=== PATIENT | female | born 1955 | race Caucasian/White ===

== ENCOUNTER → 2019-01-09 | Outpatient (CLI) | payer OTHER ==
[2019-01-09 11:25] LABS: Urine WBC None Seen /hpf (0 - 5)
[2019-01-09 11:56] LABS: Basophils # (auto) 0 uL; Basophils % (auto) 0.7 % (0.0-2.0); Eosinophils # (auto) 0.1 uL; Eosinophils % (auto) 2.6 % (0.0-7.0); Hematocrit 41.4 % (36.0-46.0); Hemoglobin 14.4 g/dL (12.2-16.2); Lymphocytes # (auto) 1.3 uL; Lymphocytes % (auto) 38.5 % (10.0-50.0); Mean Corpuscular Hemoglobin 31.2 pg (28.0-32.0); Mean Corpuscular Hgb Conc. 34.7 g/dL (32.0-36.0); Monocytes # (auto) 0.3 uL; Monocytes % (auto) 8.8 % (0.0-12.0); Neutrophils # (auto) 1.7 uL; Neutrophils % (auto) 49.4 % (37.0-80.0); Nucleated Red Blood Cells % 0.1 %; Platelet Count (auto) 181 10^3/uL (140-450); Red Blood Cells 4.61 10^6/uL (4.0-5.20); Red Cell Distribution Width 13.1 % (11.8-14.3); White Blood Cell 3.4 10^3/uL (4.4-10.8)
[2019-01-09 12:05] LABS: Albumin 3.5 g/dL (3.4-5.0); BUN/Creatinine Ratio 22.5; Calcium 8.8 mg/dL (8.5-10.1); Potassium 3.9 mmol/L (3.5-5.1)
[2019-01-09 12:08] LABS: Bilirubin, Total 0.5 mg/dL (0.2-1.0); Total Protein 6.4 g/dL (6.4-8.2)
[2019-01-09 16:53] LABS: Urine Bacteria NONE SEEN /hpf (None Seen); Urine Blood TRACE /uL (Negative); Urine Mucus FEW (None Seen); Urine Specific Gravity 1.039 (1.001-1.035)
== END | disposition home or self-care (01) ==
LOC: LAB 09:54
PROVIDERS: ATTEND Family Medicine
DX: E10.65 Type 1 diabetes mellitus with hyperglycemia (principal); I10 Essential (primary) hypertension
CPT/HCPCS: 36415; 80053; 80061; 81001; 82043; 82306; 82607; 83036; 84443; 85025

== ENCOUNTER 2019-03-02 16:37 | Inpatient (IN) | payer OTHER ==
[~2019-03-02] VITALS: Ht 165.1 cm; Wt 72.0 kg
[2019-03-02] MEDS ORDERED: ACETAMINOPHEN 325 MG TAB PO ONE (17:00)
[2019-03-02] MEDS ORDERED: SODIUM CHLORIDE 0.9% 1,000 ML IV ONE (17:12)
[2019-03-02] MEDS ORDERED: InsuLIN REG 1unit/0.01ml Soln (100units/ml) IV ONE (17:15)
[2019-03-02] MEDS ORDERED: ONDANSETRON HCL 4 MG/2 ML VIAL IV ONE (17:15)
[2019-03-02 17:20] LABS: Basophils # (auto) 0 uL; Basophils % (auto) 0.3 % (0.0-2.0); Eosinophils # (auto) 0 uL; Eosinophils % (auto) 0.2 % (0.0-7.0); Hematocrit 36.9 % (36.0-46.0); Hemoglobin 12.6 g/dL (12.2-16.2); Lymphocytes # (auto) 0.8 uL; Mean Corpuscular Hemoglobin 30.2 pg (28.0-32.0); Mean Corpuscular Hgb Conc. 34.3 g/dL (32.0-36.0); Mean Corpuscular Volume 88.1 fL (80.0-100.0); Monocytes % (auto) 7.7 % (0.0-12.0); Neutrophils # (auto) 11.2 uL; Neutrophils % (auto) 85.8 % (37.0-80.0); Platelet Count (auto) 252 10^3/uL (140-450); Red Blood Cells 4.18 10^6/uL (4.0-5.20); Red Cell Distribution Width 12.4 % (11.8-14.3)
[2019-03-02 17:34] LABS: Albumin 2.6 g/dL (3.4-5.0); Calcium 8.8 mg/dL (8.5-10.1); Potassium 3.6 mmol/L (3.5-5.1)
[2019-03-02 17:37] LABS: Bilirubin, Total 0.7 mg/dL (0.2-1.0)
[2019-03-02 17:50] LABS: BUN/Creatinine Ratio 22.5
[2019-03-02 18:08] LABS: Magnesium 2.5 mg/dL (1.6-2.6)
[2019-03-02 18:21] LABS: Partial Thromboplastin Time 28.5 sec (23.64-32.05)
[2019-03-02] MEDS ORDERED: DEXTROSE (50%) 50ML SYRG IV PRN (19:15)
[2019-03-02] MEDS ORDERED: MORPHINE SULFATE 4 MG/ML SYR/VIAL IV PRN (19:15)
[2019-03-02] MEDS ORDERED: MORPHINE SULF INJ 2 MG/ML SYRINGE 1ML IV PRN ×2 (19:15→20:00)
[2019-03-02] MEDS ORDERED: cefTRIAXone 1GM/50ML D5W 50 ML IV ONE (19:15)
[2019-03-02] MEDS: SODIUM CHLORIDE 0.9% 1,000 ML IV SCH (19:15)
[2019-03-02] MEDS ORDERED: NITROGLYCERIN 0.4 MG SL TAB SL PRN (19:15)
[2019-03-02] MEDS: InsuLIN REG 1unit/0.01ml Soln (100units/ml) SC SCH (20:15)
[2019-03-02] MEDS: ACCU-CHEK COMFORT CURVE STRIP VI SCH (20:15)
[2019-03-02 20:46] LABS: Amylase 9 U/L (25-115); Lipase 36 U/L (73-393)
[2019-03-02 20:51] LABS: Alcohol, Urine < 3.0 mg/dL (0-5); Amphetamine Screen, Urine NEGATIVE (NEGATIVE); Barbiturate Scree,Urine NEGATIVE (NEGATIVE); Benzodiazephine Screen, Urine NEGATIVE (NEGATIVE); Cannabinoid Screen, Urine NEGATIVE (NEGATIVE); Cocaine Screen, Urine NEGATIVE (NEGATIVE); Opiate Scree,Urine NEGATIVE (NEGATIVE); Phencyclidine Screen, Urine NEGATIVE (NEGATIVE)
[2019-03-02 20:53] LABS: Urine Bacteria FEW /hpf (None Seen); Urine Blood TRACE /uL (Negative); Urine Specific Gravity 1.021 (1.001-1.035); Urine WBC 43 /hpf (0 - 5); Urine WBC Clumps PRESENT /hpf (None Seen)
[2019-03-02] MEDS: metroNIDAZOLE 500MG/100ML 100 ML IV SCH (21:36)
--- NOTE | 2019-03-02 22:15 | NUR ---
Telemetry admit from ER CHELE CASTRO admitted to Telemetry unit after SBAR received. Patient oriented to LORETA SADLER RN primary RN, unit, room, bed, and unit policies regarding patient care and visiting hours. Patient now on continuous telemetry monitoring, tele box # [id number] and telemetry reading on arrival to unit is Sinus Rhythm at 95BPM. Patient placed on bedside oxygen, weighed by bedscale and encouraged to call if they need something. All questions and concerns addressed, patient verbalized understanding. Note: Patient is alert and oriented, ambulatory. No distress noted, saturating at 97% on room air. Complaints of pain to bilateral feet. Patient states she has pain patches to both feet at night prior to going to bed. Advise patient that she has pain medication if she needs it for pain. Will monitor
[2019-03-02] MEDS ORDERED: LOSA25TA38 PO (22:52)
[2019-03-02] MEDS ORDERED: INSUINJ2 SC (22:52)
[2019-03-02] MEDS ORDERED: CLON0.5T11 PO (22:52)
[2019-03-02] MEDS ORDERED: ATO40T PO (22:52)
[2019-03-02] MEDS ORDERED: GABA300C10 PO (22:52)
[2019-03-02 22:55] VITALS: BP 138/87
[2019-03-03] MEDS: InsuLIN REG 1unit/0.01ml Soln (100units/ml) SC SCH ×7 (00:31→23:38)
[2019-03-03] MEDS: MORPHINE SULF INJ 2 MG/ML SYRINGE 1ML IV PRN (00:31)
--- NOTE | 2019-03-03 02:30 | NUR ---
Rounds Assisted patient to the bathroom to urinate for the 3rd time. Patient is unsteady and weak. Will convince patient to use the commode the next time she uses the bathroom. Will monitor.
[2019-03-03] MEDS: ACCU-CHEK COMFORT CURVE STRIP VI SCH ×7 (04:04→23:36)
[2019-03-03] MEDS: SODIUM CHLORIDE 0.9% 1,000 ML IV SCH ×3 (04:30→17:05)
[2019-03-03 05:00] VITALS: BP 129/58
--- NOTE | 2019-03-03 05:00 | NUR ---
ROUNDS PATIENT HAS TEMPERATURE OF 100.5, WILL PAGE HOSPITALIST.
--- NOTE | 2019-03-03 05:06 | NUR ---
PAGED HOSPITALIST, AWAITING CALL BACK
[2019-03-03] MEDS: metroNIDAZOLE 500MG/100ML 100 ML IV SCH ×3 (06:12→22:28)
[2019-03-03 07:25] LABS: Basophils # (auto) 0.1 uL; Basophils % (auto) 0.3 % (0.0-2.0); Eosinophils # (auto) 0 uL; Eosinophils % (auto) 0.2 % (0.0-7.0); Hematocrit 33.9 % (36.0-46.0); Hemoglobin 11.8 g/dL (12.2-16.2); Lymphocytes # (auto) 1.4 uL; Lymphocytes % (auto) 9.5 % (10.0-50.0); Mean Corpuscular Hemoglobin 30.4 pg (28.0-32.0); Mean Corpuscular Hgb Conc. 34.9 g/dL (32.0-36.0); Mean Corpuscular Volume 87.2 fL (80.0-100.0); Monocytes # (auto) 1.1 uL; Monocytes % (auto) 7.3 % (0.0-12.0); Neutrophils # (auto) 12.5 uL; Neutrophils % (auto) 82.7 % (37.0-80.0); Nucleated Red Blood Cells % 0.1 %; Platelet Count (auto) 248 10^3/uL (140-450); Red Blood Cells 3.89 10^6/uL (4.0-5.20); Red Cell Distribution Width 12.5 % (11.8-14.3); White Blood Cell 15.1 10^3/uL (4.4-10.8)
--- NOTE | 2019-03-03 07:25 | NUR ---
Opening Shift Note Orientated Patient to [place]. Assumed care of patient. Patient is sleeping with no S/S of distress/SOB or pain. Chest rise and fall bilaterally. Will continue to monitor for changes Q1hr and PRN.
--- NOTE | 2019-03-03 07:35 | NUR ---
Temperature Patient temperature rise to 102.[address] Humphrey made aware and new orders received. See emar. Cooling measures initiated removed extra blankets, room cooled down, and patient complained of chills. Will medicate as ordered by .
[2019-03-03 07:42] LABS: Albumin 2.1 g/dL (3.4-5.0); Calcium 8.4 mg/dL (8.5-10.1); Potassium 3.9 mmol/L (3.5-5.1)
[2019-03-03 07:45] LABS: Bilirubin, Total 0.5 mg/dL (0.2-1.0); Total Protein 6.6 g/dL (6.4-8.2)
[2019-03-03 07:48] LABS: Cholesterol 109 mg/dL (< 200); Triglycerides 191 mg/dL (< 150)
[2019-03-03 07:51] LABS: HDL Cholesterol 17 mg/dL (40-59); LDL Cholesterol 59 mg/dL (< 100)
[2019-03-03 08:00] VITALS: BP 155/78
[2019-03-03] MEDS: IBUPROFEN 600 MG TAB PO PRN ×4 (09:04→23:39)
[2019-03-03] MEDS: PANTOPRAZOLE 40 MG TAB PO SCH (09:05)
[2019-03-03] MEDS: cefTRIAXone 1GM/50ML D5W 50 ML IV SCH (09:05)
--- NOTE | 2019-03-03 10:50 | NUR ---
Temperature reassessment Patient temperature reassessed 99.1 F. Patient denies any other symptoms at this moment. No complaints of chills. Will continue to monitor patient. Instructed patient to call for assistance and patient verbalized understanding. Bed in low position and call light within reach.
--- NOTE | 2019-03-03 11:50 | NUR ---
AT BEDSIDE DR CRAWFORD AT BEDSIDE, DISCUSSING POC WITH PT, CONT CARE
[2019-03-03 12:00] VITALS: BP 117/60
--- NOTE | 2019-03-03 15:00 | NUR ---
PT OFF UNIT FOR HIDA SCAN TAKEN VIA WHEELCHAIR, NO DISTRESS NOTED, CONT CARE
[2019-03-03 17:00] VITALS: BP 124/69
--- NOTE | 2019-03-03 18:50 | NUR ---
PT OFF UNIT/NUCLEAR MED
--- NOTE | 2019-03-03 19:25 | NUR ---
Opening Shift Note Received report from junie Mukherjee RN. Assumed care of patient, awake and alert. No S/S of distress/SOB or pain. Instructed on POC and to call for assist PRN, will continue to monitor for changes Q1hr and PRN. Bed placed in lowest position, bed alarm turned on and call light within reach.
[2019-03-03 20:00] VITALS: BP 157/76
--- NOTE | 2019-03-03 20:28 | NUR ---
Patient's blood sugar is 407 and 421 respectively. Will page hospitalist.
[2019-03-03 21:38] VITALS: BP 157/76
--- NOTE | 2019-03-03 22:00 | NUR ---
PAGED, AWAITING CALL BACK.
--- NOTE | 2019-03-03 23:32 | NUR ---
BLOOD SUGAR RESULT IS 232, 6 UNITS OF REG INSULIN GIVEN. WILL MONITOR.
[2019-03-04] MEDS: SODIUM CHLORIDE 0.9% 1,000 ML IV SCH ×4 (00:57→17:55)
[2019-03-04] MEDS: MORPHINE SULF INJ 2 MG/ML SYRINGE 1ML IV PRN (02:18)
[2019-03-04] MEDS: ACCU-CHEK COMFORT CURVE STRIP VI SCH ×5 (04:00→19:48)
[2019-03-04] MEDS: InsuLIN REG 1unit/0.01ml Soln (100units/ml) SC SCH ×5 (04:00→19:48)
[2019-03-04 05:00] VITALS: BP 137/71
[2019-03-04 05:38] LABS: Basophils # (auto) 0 uL; Basophils % (auto) 0.3 % (0.0-2.0); Eosinophils # (auto) 0.1 uL; Eosinophils % (auto) 0.6 % (0.0-7.0); Hematocrit 33.1 % (36.0-46.0); Hemoglobin 11.5 g/dL (12.2-16.2); Lymphocytes # (auto) 1.4 uL; Lymphocytes % (auto) 11.3 % (10.0-50.0); Mean Corpuscular Hemoglobin 30.7 pg (28.0-32.0); Mean Corpuscular Hgb Conc. 34.9 g/dL (32.0-36.0); Monocytes # (auto) 0.9 uL; Monocytes % (auto) 7.4 % (0.0-12.0); Neutrophils # (auto) 10.2 uL; Neutrophils % (auto) 80.4 % (37.0-80.0); Platelet Count (auto) 243 10^3/uL (140-450); Red Blood Cells 3.76 10^6/uL (4.0-5.20); Red Cell Distribution Width 12.5 % (11.8-14.3); White Blood Cell 12.7 10^3/uL (4.4-10.8)
[2019-03-04 05:56] LABS: Albumin 2.1 g/dL (3.4-5.0); BUN/Creatinine Ratio 22.4; Calcium 7.8 mg/dL (8.5-10.1); Potassium 3.2 mmol/L (3.5-5.1)
[2019-03-04 05:58] LABS: Bilirubin, Total 0.5 mg/dL (0.2-1.0); Total Protein 5.9 g/dL (6.4-8.2)
[2019-03-04] MEDS: metroNIDAZOLE 500MG/100ML 100 ML IV SCH ×3 (06:38→21:34)
--- NOTE | 2019-03-04 07:20 | NUR ---
OPENING SHIFT NOTE ASSUMED CARE OF PATIENT FROM POULTRY FEED SUPERVISOR RN LORETA. PATIENT IS AWAKE AND ALERT X4. PATIENT HAS NO S/S OF DISTRESS/SOB OR PAIN. INSTRUCTED PATIENT ON POC, PATIENT VERBALIZED UNDERSTANDING. BED IS IN LOWEST POSITION WITH SIDE RAILS RAISED X2, BED WHEELS LOCKED, AND CALL LIGHT IS WITHIN REACH. WILL CONTINUE TO MONITOR.
[2019-03-04 07:33] VITALS: BP 156/86
--- NOTE | 2019-03-04 07:55 | NUR ---
MD CRAWFORD AT BEDSIDE UPDATED MD ON PATIENT'S STATUS INCLUDING POTASSIUM LEVEL OF 3.2. MD IS AWARE AND WILL PUT IN NEW ORDERS FOR POTASSIUM. WILL FOLLOW THROUGH WITH ORDERS.
[2019-03-04 08:00] VITALS: BP 152/77
[2019-03-04] MEDS ORDERED: POTASSIUM EFFERVESENT TAB 25 MEQ PO ONE (08:15)
[2019-03-04] MEDS: cefTRIAXone 1GM/50ML D5W 50 ML IV SCH (08:28)
[2019-03-04] MEDS: PANTOPRAZOLE 40 MG TAB PO SCH (09:51)
[2019-03-04 12:00] VITALS: BP 142/70
--- NOTE | 2019-03-04 16:04 | NUR ---
SPOKE WITH MD CRAWFORD. INFORMED MD PATIENT IS NAUSEAS. MD ORDERED ZOFRAN TO BE GIVEN. WILL FOLLOW THROUGH WITH ORDERS
[2019-03-04] MEDS: IBUPROFEN 600 MG TAB PO PRN (16:39)
[2019-03-04] MEDS: ONDANSETRON HCL 4 MG/2 ML VIAL IV PRN ×2 (16:39→22:30)
[2019-03-04 16:55] VITALS: BP 145/76
--- NOTE | 2019-03-04 19:40 | NUR ---
OPENING SHIFT NOTE RECEIVED REPORT FROM DAYSHIFT RN. PATIENT LYING IN BED WITH EYES CLOSED. NO S/S OF DISTRESS OR SOB. NO PAIN NOTED OR REPORTED AT THIS TIME. PATIENT A/O X4, AMBULATORY. UPDATED PATIENT ON POC, VERBALIZED UNDERSTANDING. BED LOCKED IN LOW POSITION, CALL LIGHT WITHIN REACH. WILL CONTINUE TO MONITOR PATIENT Q1HR AND PRN.
[2019-03-04 22:10] VITALS: BP 137/75
[2019-03-05] MEDS: InsuLIN REG 1unit/0.01ml Soln (100units/ml) SC SCH ×3 (00:02→08:23)
[2019-03-05] MEDS: ACCU-CHEK COMFORT CURVE STRIP VI SCH ×3 (00:02→08:15)
[2019-03-05] MEDS: SODIUM CHLORIDE 0.9% 1,000 ML IV SCH ×2 (00:13→07:15)
[2019-03-05] MEDS: ONDANSETRON HCL 4 MG/2 ML VIAL IV PRN (04:19)
[2019-03-05 05:11] VITALS: BP 156/79
[2019-03-05] MEDS: metroNIDAZOLE 500MG/100ML 100 ML IV SCH (06:02)
--- NOTE | 2019-03-05 07:05 | NUR ---
OPENING SHIFT NOTE ASSUMED CARE OF PATIENT FROM STAGE SET UP WORKER RN YARY. PATIENT IS AWAKE AND ALERT X4. PATIENT HAS NO S/S OF DISTRESS/SOB OR PAIN. INSTRUCTED PATIENT ON POC, PATIENT VERBALIZED UNDERSTANDING. BED IS IN LOWEST POSITION WITH SIDE RAILS RAISED X2, BED WHEELS LOCKED, AND CALL LIGHT IS WITHIN REACH. WILL CONTINUE TO MONITOR.
[2019-03-05 07:39] VITALS: BP 158/83
[2019-03-05 08:00] VITALS: BP 158/83
--- NOTE | 2019-03-05 08:10 | NUR ---
MD CRAWFORD AT BEDSIDE UPDATED MD ON PATIENT'S STATUS INCLUDING BP OF 158/83 mmHg, PATIENT HAS BEEN NAUSEAS, AND URINE BACTERIAL CULTURE. MD IS AWARE AND ORDERED FLUIDS TO BE STOPPED AND TO DISCHARGE PATIENT. WILL FOLLOW THROUGH WITH ORDERS.
[2019-03-05] MEDS: PANTOPRAZOLE 40 MG TAB PO SCH (08:22)
[2019-03-05] MEDS: cefTRIAXone 1GM/50ML D5W 50 ML IV SCH (08:23)
[2019-03-05 11:28] VITALS: BP 158/63
[2019-03-06 10:05] LABS: Hepatitis B Surface Antibody Negative
[2019-03-06 10:43] LABS: Hepatitis A Total Antibody Positive
[2019-03-06 11:10] LABS: Hepatitis B Core Total AB Negative
[2019-03-06 11:11] LABS: Hepatitis B Surface Antigen Negative (Negative); Hepatitis C Antibody Negative (Negative)
== END 2019-03-05 12:14 | disposition home or self-care (01) | DRG 872 ==
LOC: ER 16:47 → TELE 16:48 → TELE-CENTR 22:15
PROVIDERS: ADMIT Internal Medicine; ATTEND Family Medicine
DX: A41.9 Sepsis, unspecified organism (principal); N39.0 Urinary tract infection, site not specified; E11.65 Type 2 diabetes mellitus with hyperglycemia; E78.5 Hyperlipidemia, unspecified; E86.0 Dehydration; E87.6 Hypokalemia; I10 Essential (primary) hypertension; K80.20 Calculus of gallbladder without cholecystitis without obstruction; R79.89 Other specified abnormal findings of blood chemistry
CPT/HCPCS: 36415; 71045; 74176; 76705; 78226; 80053; 80061; 80307; 81001; 82150; 82962; 83036; 83690; 83735; 84484; 85025; 85610; 85652; 85730; 86704; 86706; 86708; 86803; 87040; 87086; 87340; 94761; 96361; 96365; 96375; G0378; J0696; J1815; J2405; J3490

== ENCOUNTER → 2019-06-22 | Outpatient (CLI) | payer OTHER ==
[~2019-06-22] MED LIST: ATO40T PO; CLON0.5T11 PO; GABA300C10 PO; INSUINJ2 SC; LOSA25TA38 PO
[2019-06-22 09:31] LABS: Basophils # (auto) 0 uL; Basophils % (auto) 0.6 % (0.0-2.0); Eosinophils # (auto) 0.2 uL; Eosinophils % (auto) 3.3 % (0.0-7.0); Hematocrit 39.7 % (36.0-46.0); Hemoglobin 13.8 g/dL (12.2-16.2); Lymphocytes # (auto) 1.9 uL; Lymphocytes % (auto) 38.9 % (10.0-50.0); Mean Corpuscular Hemoglobin 30.3 pg (28.0-32.0); Mean Corpuscular Hgb Conc. 34.7 g/dL (32.0-36.0); Mean Corpuscular Volume 87.2 fL (80.0-100.0); Monocytes # (auto) 0.4 uL; Monocytes % (auto) 8.8 % (0.0-12.0); Neutrophils # (auto) 2.4 uL; Neutrophils % (auto) 48.4 % (37.0-80.0); Nucleated Red Blood Cells % 0.2 %; Platelet Count (auto) 206 10^3/uL (140-450); Red Blood Cells 4.56 10^6/uL (4.0-5.20); Red Cell Distribution Width 12.8 % (11.8-14.3)
[2019-06-22 10:13] LABS: Potassium 4.6 mmol/L (3.5-5.1)
[2019-06-22 10:22] LABS: Albumin 3.8 g/dL (3.4-5.0); BUN/Creatinine Ratio 23.1; Bilirubin, Total 0.5 mg/dL (0.2-1.0); Calcium 8.8 mg/dL (8.5-10.1); Total Protein 6.9 g/dL (6.4-8.2)
== END | disposition home or self-care (01) ==
LOC: LAB 09:05
PROVIDERS: ATTEND Internal Medicine
DX: E11.9 Type 2 diabetes mellitus without complications (principal); E78.5 Hyperlipidemia, unspecified; I10 Essential (primary) hypertension
CPT/HCPCS: 36415; 80053; 83036; 85025

== ENCOUNTER → 2019-08-31 | Outpatient (CLI) | payer OTHER ==
[~2019-08-31] MED LIST changes: -CLON0.5T11 PO; +CLON0.5T3 PO
[2019-08-31 12:15] LABS: Potassium 4.2 mmol/L (3.5-5.1)
[2019-08-31 12:23] LABS: Albumin 3.5 g/dL (3.4-5.0); BUN/Creatinine Ratio 36.5; Bilirubin, Total 0.5 mg/dL (0.2-1.0); Calcium 8.9 mg/dL (8.5-10.1); Total Protein 6.9 g/dL (6.4-8.2)
== END | disposition home or self-care (01) ==
LOC: LAB 09:51
PROVIDERS: ATTEND Internal Medicine
DX: I10 Essential (primary) hypertension (principal)
CPT/HCPCS: 36415; 80053

== ENCOUNTER → 2019-09-25 | Outpatient (CLI) | payer OTHER ==
[2019-09-25 11:22] LABS: Albumin 3.7 g/dL (3.4-5.0)
[2019-09-25 11:26] LABS: Bilirubin, Direct 0.1 mg/dL (0-0.2); Bilirubin, Total 0.5 mg/dL (0.2-1.0); Total Protein 7.4 g/dL (6.4-8.2)
== END | disposition home or self-care (01) ==
LOC: LAB 10:23
PROVIDERS: ATTEND Internal Medicine
DX: I10 Essential (primary) hypertension (principal); E11.9 Type 2 diabetes mellitus without complications; E78.5 Hyperlipidemia, unspecified
CPT/HCPCS: 36415; 80061; 80076; 82043; 82270; 83036

== ENCOUNTER → 2020-01-02 | Outpatient (CLI) | payer OTHER | END | disposition home or self-care (01) | LOC: LAB 09:14 | PROVIDERS: ATTEND Internal Medicine | DX: E11.9 Type 2 diabetes mellitus without complications (principal) | CPT/HCPCS: 36415; 83036 ==

== ENCOUNTER → 2020-04-11 | Outpatient (CLI) | payer OTHER | END | disposition home or self-care (01) | LOC: LAB 09:58 | PROVIDERS: ATTEND Internal Medicine | DX: E11.9 Type 2 diabetes mellitus without complications (principal) | CPT/HCPCS: 36415; 83036 ==

== ENCOUNTER → 2020-11-04 | Outpatient (CLI) | payer BC, MEDICARE ==
[2020-11-04 13:11] LABS: Albumin 3.8 g/dL (3.4-5.0); Calcium 9.4 mg/dL (8.5-10.1); Potassium 4.8 mmol/L (3.5-5.1)
[2020-11-04 13:16] LABS: BUN/Creatinine Ratio 30.5; Bilirubin, Total 0.7 mg/dL (0.2-1.0)
== END | disposition home or self-care (01) ==
LOC: LAB 12:00
PROVIDERS: ATTEND Internal Medicine
DX: E11.9 Type 2 diabetes mellitus without complications (principal); E78.5 Hyperlipidemia, unspecified
CPT/HCPCS: 36415; 80053; 80061; 82043; 83036

== ENCOUNTER → 2021-01-29 | Outpatient (CLI) | payer MEDICARE, BC ==
[2021-01-29 10:48] LABS: Albumin 3.7 g/dL (3.4-5.0); Calcium 8.8 mg/dL (8.5-10.1); Potassium 3.9 mmol/L (3.5-5.1)
[2021-01-29 10:53] LABS: Bilirubin, Total 0.4 mg/dL (0.2-1.0)
== END | disposition home or self-care (01) ==
LOC: LAB 09:46
PROVIDERS: ATTEND Internal Medicine
DX: E11.9 Type 2 diabetes mellitus without complications (principal)
CPT/HCPCS: 36415; 80053; 83036

== ENCOUNTER → 2021-08-11 | Outpatient (CLI) | payer MEDICARE, OTHER ==
[2021-08-11 09:51] LABS: Albumin 3.5 g/dL (3.4-5.0); BUN/Creatinine Ratio 32.7; Bilirubin, Total 0.4 mg/dL (0.2-1.0); Calcium 9.5 mg/dL (8.5-10.1); Total Protein 7.4 g/dL (6.4-8.2)
== END | disposition home or self-care (01) ==
LOC: LAB 08:53
PROVIDERS: ATTEND Internal Medicine
DX: E11.9 Type 2 diabetes mellitus without complications (principal); N39.0 Urinary tract infection, site not specified
CPT/HCPCS: 36415; 80053; 83036

== ENCOUNTER → 2021-10-06 | Day surgery (SDC) | payer OTHER ==
[2021-10-03 11:46] LABS: Basophils # (auto) 0.1 10 ^3/uL (0-0.2); Eosinophils # (auto) 0.1 10 ^3/uL (0-0.8); Eosinophils % (auto) 2.2 % (0.0-7.0); Hematocrit 43.7 % (36.0-46.0); Hemoglobin 15.2 g/dL (12.2-16.2); Lymphocytes # (auto) 2.6 10 ^3/uL (0.4-5.4); Lymphocytes % (auto) 38.6 % (10.0-50.0); Mean Corpuscular Hemoglobin 30.3 pg (28.0-32.0); Mean Corpuscular Hgb Conc. 34.7 g/dL (32.0-36.0); Mean Corpuscular Volume 87.4 fL (80.0-100.0); Monocytes # (auto) 0.4 10 ^3/uL (0-1.3); Monocytes % (auto) 5.9 % (0.0-12.0); Neutrophils # (auto) 3.5 10 ^3/uL (1.6-8.6); Neutrophils % (auto) 52.3 % (37.0-80.0); Nucleated Red Blood Cells % 0.1 %; Red Cell Distribution Width 12.7 % (11.8-14.3); White Blood Cell 6.8 10^3/uL (4.4-10.8)
[2021-10-03 12:11] LABS: Albumin 4.1 g/dL (3.4-5.0); BUN/Creatinine Ratio 33.3; Calcium 10.3 mg/dL (8.5-10.1)
[2021-10-03 12:13] LABS: Bilirubin, Total 0.6 mg/dL (0.2-1.0); Total Protein 7.7 g/dL (6.4-8.2)
[2021-10-03 12:24] LABS: INR 1.04 (0.9-1.15); Partial Thromboplastin Time 23.9 sec (23.6-33.0)
[2021-10-03 13:27] LABS: Urine Bacteria NONE SEEN /hpf (None Seen); Urine Blood Negative /uL (Negative); Urine Specific Gravity 1.026 (1.001-1.035); Urine WBC 6 /hpf (0 - 5)
[~2021-10-06] VITALS: Ht 165.1 cm; Wt 70.3 kg
[~2021-10-06] MED LIST changes: +ACCU-CHEK COMFORT CURVE STRIP VI ONE; +ACCU-CHEK COMFORT CURVE STRIP VI SCH; +CIPROFLOXACIN 400MG/200ML 200 ML IV ONE; +DEXTROSE (50%) 50ML SYRG IV PRN; +DexAMETHasone SOD PHOS 10MG/1ML VIAL INJ ONE; +EMPA1TAB3 PO; -GABA300C10 PO; +HYDR25TA5 PO; +HYDROmorphone HCL 2 MG/ML VL IV PRN; +INSREG3 SUBCUT; -INSUINJ2 SC; +InsuLIN REG 1unit/0.01ml Soln (100units/ml) ONE; +InsuLIN REG 1unit/0.01ml Soln (100units/ml) SC SCH; +KETAMINE HCL 10 ML ONE; +LEVEMIR SC; +LISI-716 PO; +MANNITOL FTV 25% 12.5 GM/50 ML 50 ML IV ONE; +METOCLOPRAMIDE HCL 5MG/ml INJ 2ml VIAL IV PRN; +MIDAZOLAM HCL 2MG/2ML 2ml VIAL (1mg/ml) ONE; +MORPHINE SULFATE 4 MG/ML SYR/VIAL IV PRN; +ONDANSETRON HCL 4 MG/2 ML VIAL ONE; +PROPOFOL 10 MG/ML 20 ML IV ONE; +SODIUM CHLORIDE LOCK 10 ML ONE; +fentaNYL CITRATE 100 MCG/2 ML VL ONE
[2021-10-06 11:30] VITALS: BP 143/75
== END | disposition home or self-care (01) ==
LOC: SUR 06:59
PROVIDERS: ATTEND Urology
DX: N13.2 Hydronephrosis with renal and ureteral calculous obstruction (principal); E11.9 Type 2 diabetes mellitus without complications; I10 Essential (primary) hypertension; E78.5 Hyperlipidemia, unspecified; Z86.73 Personal history of transient ischemic attack (TIA), and cerebral infarction without residual deficits; Z88.1 Allergy status to other antibiotic agents; Z20.822 Contact with and (suspected) exposure to COVID-19; Z82.49 Family history of ischemic heart disease and other diseases of the circulatory system; Z83.3 Family history of diabetes mellitus
CPT/HCPCS: 36415; 52352; 80053; 81001; 82962; 85025; 85610; 85730; 87086; 88300; C1769; J0744; J1100; J1170; J1815; J2150; J2250; J2405; J2704; J2765; J3010; J7030; U0003

== ENCOUNTER → 2021-10-14 | Outpatient (CLI) | payer OTHER ==
[~2021-10-14] MED LIST changes: -ACCU-CHEK COMFORT CURVE STRIP VI ONE; -ACCU-CHEK COMFORT CURVE STRIP VI SCH; -CIPROFLOXACIN 400MG/200ML 200 ML IV ONE; -DEXTROSE (50%) 50ML SYRG IV PRN; -DexAMETHasone SOD PHOS 10MG/1ML VIAL INJ ONE; -HYDROmorphone HCL 2 MG/ML VL IV PRN; -InsuLIN REG 1unit/0.01ml Soln (100units/ml) ONE; -InsuLIN REG 1unit/0.01ml Soln (100units/ml) SC SCH; -KETAMINE HCL 10 ML ONE; -MANNITOL FTV 25% 12.5 GM/50 ML 50 ML IV ONE; -METOCLOPRAMIDE HCL 5MG/ml INJ 2ml VIAL IV PRN; -MIDAZOLAM HCL 2MG/2ML 2ml VIAL (1mg/ml) ONE; -MORPHINE SULFATE 4 MG/ML SYR/VIAL IV PRN; -ONDANSETRON HCL 4 MG/2 ML VIAL ONE; -PROPOFOL 10 MG/ML 20 ML IV ONE; -SODIUM CHLORIDE LOCK 10 ML ONE; -fentaNYL CITRATE 100 MCG/2 ML VL ONE
[2021-10-14 10:33] LABS: Basophils # (auto) 0.1 10 ^3/uL (0-0.2); Basophils % (auto) 1.5 % (0.0-2.0); Eosinophils # (auto) 0.1 10 ^3/uL (0-0.8); Eosinophils % (auto) 2.7 % (0.0-7.0); Hematocrit 41.5 % (36.0-46.0); Hemoglobin 14.5 g/dL (12.2-16.2); Lymphocytes # (auto) 2.1 10 ^3/uL (0.4-5.4); Lymphocytes % (auto) 39.7 % (10.0-50.0); Mean Corpuscular Hemoglobin 30.8 pg (28.0-32.0); Mean Corpuscular Volume 87.9 fL (80.0-100.0); Monocytes # (auto) 0.3 10 ^3/uL (0-1.3); Monocytes % (auto) 5.5 % (0.0-12.0); Neutrophils # (auto) 2.7 10 ^3/uL (1.6-8.6); Neutrophils % (auto) 50.6 % (37.0-80.0); Nucleated Red Blood Cells % 0.1 %; Red Blood Cells 4.72 10^6/uL (4.0-5.20); Red Cell Distribution Width 12.9 % (11.8-14.3); White Blood Cell 5.4 10^3/uL (4.4-10.8)
[2021-10-14 11:36] LABS: Albumin 3.6 g/dL (3.4-5.0); BUN/Creatinine Ratio 37.1; Bilirubin, Total 0.5 mg/dL (0.2-1.0); Calcium 9.4 mg/dL (8.5-10.1); Total Protein 7.4 g/dL (6.4-8.2)
== END | disposition home or self-care (01) ==
LOC: LAB 09:56
PROVIDERS: ATTEND Internal Medicine
DX: Z00.00 Encounter for general adult medical examination without abnormal findings (principal); E11.9 Type 2 diabetes mellitus without complications; E78.5 Hyperlipidemia, unspecified
CPT/HCPCS: 36415; 80053; 80061; 82043; 82306; 83036; 85025

== ENCOUNTER → 2022-01-14 | Outpatient (CLI) | payer OTHER ==
[2022-01-14 10:59] LABS: Albumin 3.6 g/dL (3.4-5.0); Calcium 9.6 mg/dL (8.5-10.1); Potassium 4.2 mmol/L (3.5-5.1)
[2022-01-14 11:04] LABS: BUN/Creatinine Ratio 40.6; Bilirubin, Total 0.7 mg/dL (0.2-1.0)
== END | disposition home or self-care (01) ==
LOC: LAB 10:25
PROVIDERS: ATTEND Internal Medicine
DX: E78.5 Hyperlipidemia, unspecified (principal); E11.9 Type 2 diabetes mellitus without complications
CPT/HCPCS: 36415; 80053; 80061; 83036

== ENCOUNTER → 2022-04-15 | Outpatient (CLI) | payer OTHER | END | disposition home or self-care (01) | LOC: LAB 11:16 | PROVIDERS: ATTEND Internal Medicine | DX: E11.9 Type 2 diabetes mellitus without complications (principal) | CPT/HCPCS: 36415; 83036 ==

== ENCOUNTER → 2023-04-20 | Outpatient (CLI) | payer OTHER ==
[~2023-04-20] MED LIST changes: -LISI-716 PO; +LISI10TA34 PO; +LOSA25TA15 PO; -LOSA25TA38 PO
[2023-04-20 10:40] LABS: Anion Gap 6 (5-15); Carbon Dioxide 31 mmol/L (20-30); Chloride 105 mmol/L (98-107); Potassium 4.2 mmol/L (3.5-5.1); Sodium 142 mmol/L (136-145)
[2023-04-20 10:41] LABS: Calcium 9.9 mg/dL (8.5-10.1)
[2023-04-20 10:46] LABS: BUN/Creatinine Ratio 26.2 (10.0-20.0); Blood Urea Nitrogen 22 mg/dL (9-23); Glucose 127 mg/dL (74-106)
== END | disposition home or self-care (01) ==
LOC: LAB 09:48
PROVIDERS: ATTEND Internal Medicine
DX: E11.9 Type 2 diabetes mellitus without complications (principal)
CPT/HCPCS: 36415; 80048

== ENCOUNTER 2023-05-29 05:18 | Inpatient (IN) | payer BC, MEDICARE, OTHER ==
[~2023-05-29] VITALS: Ht 165.1 cm; Wt 66.0 kg
[2023-05-29] MEDS ORDERED: IBUPROFEN 600 MG TAB PO ONE (05:45)
[2023-05-29 06:43] LABS: Basophils # (auto) 0 10 ^3/uL (0-0.2); Basophils % (auto) 0.5 % (0.0-2.0); Eosinophils # (auto) 0.2 10 ^3/uL (0-0.8); Eosinophils % (auto) 2.1 % (0.0-7.0); Hematocrit 44.6 % (36.0-46.0); Hemoglobin 14.5 g/dL (12.2-16.2); Lymphocytes # (auto) 2.5 10 ^3/uL (0.4-5.4); Lymphocytes % (auto) 28.1 % (10.0-50.0); Mean Corpuscular Hemoglobin 30.6 pg (28.0-32.0); Mean Corpuscular Hgb Conc. 32.5 g/dL (32.0-36.0); Mean Corpuscular Volume 94.2 fL (80.0-100.0); Monocytes # (auto) 0.6 10 ^3/uL (0-1.3); Monocytes % (auto) 6.6 % (0.0-12.0); Neutrophils # (auto) 5.6 10 ^3/uL (1.6-8.6); Neutrophils % (auto) 62.7 % (37.0-80.0); Nucleated Red Blood Cells % 0.1 %; Red Blood Cells 4.73 10^6/uL (4.0-5.20); Red Cell Distribution Width 13.1 % (11.8-14.3)
[2023-05-29 07:30] LABS: INR 1.02 (0.9-1.15); Partial Thromboplastin Time 24.8 SEC (24.5-34.5); Prothrombin Time 10.7 sec (9.3-11.8)
[2023-05-29 07:59] LABS: Alanine Aminotransferase 27 U/L (7-40); Albumin 4.8 g/dL (3.2-4.8); Alkaline Phosphatase 125 U/L (46-116); Anion Gap 9 (5-15); Aspartate Aminotransferase 21 U/L (13-40); BUN/Creatinine Ratio 18.4 (10.0-20.0); Blood Urea Nitrogen 19 mg/dL (9-23); Calcium 10.3 mg/dL (8.5-10.1); Carbon Dioxide 25 mmol/L (20-30); Chloride 102 mmol/L (98-107); Glucose 389 mg/dL (74-106); Potassium 3.7 mmol/L (3.5-5.1); Sodium 136 mmol/L (136-145)
[2023-05-29 08:00] LABS: Bilirubin, Total 0.9 mg/dL (0.2-1.0); Total Protein 7.1 g/dL (5.7-8.2)
[2023-05-29] MEDS ORDERED: HYDROcodone-ACET 5/325MG TAB PO ONE (11:15)
[2023-05-29] MEDS ORDERED: DEXTROSE (50%) 50ML SYRG IV PRN (11:15)
[2023-05-29 12:00] LABS: Magnesium 2.6 mg/dL (1.6-2.6)
[2023-05-29 12:02] LABS: Phosphorus 4.3 mg/dL (2.4-5.1)
[2023-05-29] MEDS: ACCU-CHEK COMFORT CURVE STRIP VI SCH ×2 (12:30→18:16)
[2023-05-29] MEDS: InsuLIN REG 1unit/0.01ml Soln (100units/ml) SC SCH ×2 (12:40→18:30)
[2023-05-29 13:00] VITALS: PULSE 91; RESP 17; O2SAT 97
[2023-05-29] MEDS: SODIUM CHLORIDE 0.9% 1,000 ML IV SCH ×2 (13:20→21:15)
[2023-05-29] MEDS: ATORVASTATIN 20 MG TAB PO SCH (18:27)
[2023-05-29 19:30] VITALS: PULSE 79; RESP 20; O2SAT 97
[2023-05-29] MEDS ORDERED: METF-869 PO (21:47)
[2023-05-29] MEDS ORDERED: ATORVASTATIN 20 MG TAB PO SCH (22:00)
[2023-05-29] MEDS: clonazePAM 0.5 MG TAB PO SCH (22:02)
[2023-05-29 22:19] VITALS: BP 147/85; PULSE 81; RESP 20; TEMP 98.1; O2SAT 95
[2023-05-30] VITALS (8 sets, daily range): BP systolic 116–174; BP diastolic 49–82; PULSE 75–86; RESP 16–20; TEMP 97.5–98.6; O2SAT 94–96
[2023-05-30] MEDS: InsuLIN REG 1unit/0.01ml Soln (100units/ml) SC SCH ×4 (00:11→17:25)
[2023-05-30] MEDS: ACCU-CHEK COMFORT CURVE STRIP VI SCH ×5 (00:11→23:08)
[2023-05-30] MEDS: HYDROcodone-ACET 5/325MG TAB PO PRN ×3 (00:59→21:49)
[2023-05-30 06:13] LABS: LDL Cholesterol 37 mg/dL (< 100); Triglycerides 210 mg/dL (< 150)
[2023-05-30 06:15] LABS: Cholesterol 104 mg/dL (< 200); HDL Cholesterol 37 mg/dL (40-59)
[2023-05-30] MEDS: hydroCHLOROthiazide 25 MG TAB PO SCH (09:04)
[2023-05-30] MEDS: LISINOPRIL 10 MG TAB PO SCH (09:05)
[2023-05-30] MEDS: ASPirin 81 mg TAB PO SCH (09:05)
[2023-05-30] MEDS ORDERED: LOSARTAN POTASSIUM 25 MG TAB PO SCH (10:00)
[2023-05-30] MEDS ORDERED: DEXTROSE (50%) 50ML SYRG IV PRN (13:15)
[2023-05-30] MEDS: SODIUM CHLORIDE 0.9% 1,000 ML IV SCH ×2 (14:11→17:15)
[2023-05-30] MEDS ORDERED: ACCU-CHEK COMFORT CURVE STRIP VI SCH (18:00)
[2023-05-30] MEDS: ATORVASTATIN 20 MG TAB PO SCH (19:16)
[2023-05-30] MEDS ORDERED: InsuLIN REG 1unit/0.01ml Soln (100units/ml) SC SCH (22:00)
[2023-05-30] MEDS: clonazePAM 0.5 MG TAB PO SCH (23:07)
[2023-05-31] MEDS: SODIUM CHLORIDE 0.9% 1,000 ML IV SCH ×2 (03:15→06:34)
[2023-05-31 05:15] VITALS: BP 132/70; PULSE 84; RESP 20; TEMP 97.5; O2SAT 97
[2023-05-31] MEDS: ACCU-CHEK COMFORT CURVE STRIP VI SCH ×2 (06:34→12:03)
[2023-05-31] MEDS: InsuLIN REG 1unit/0.01ml Soln (100units/ml) SC SCH ×2 (06:40→12:04)
[2023-05-31 08:00] VITALS: PULSE 88
[2023-05-31] MEDS: HYDROcodone-ACET 5/325MG TAB PO PRN ×2 (08:07→16:57)
[2023-05-31 09:00] VITALS: BP 116/64; PULSE 87; RESP 17; TEMP 97.7; O2SAT 94
[2023-05-31] MEDS ORDERED: LORazepam 2MG/ML-1ML VIAL IV PRN (10:00)
[2023-05-31] MEDS: LISINOPRIL 10 MG TAB PO SCH (11:17)
[2023-05-31] MEDS: ASPirin 81 mg TAB PO SCH (11:17)
[2023-05-31] MEDS: hydroCHLOROthiazide 25 MG TAB PO SCH (11:17)
[2023-05-31 12:09] LABS: % Iron Saturation 44.3 % (15-50)
[2023-05-31 13:44] LABS: Folate (Folic Acid) > 24.00 ng/mL (>5.38)
[2023-05-31 13:47] VITALS: BP 137/76; PULSE 83; RESP 17; TEMP 98.3; O2SAT 95
[2023-05-31 13:49] LABS: Ferritin 197.7 ng/mL (10-291)
[2023-05-31 14:58] LABS: Urine Bacteria MANY /hpf (None Seen); Urine Blood Negative /uL (Negative); Urine Clarity Clear (Clear); Urine Hyaline Cast MOD /lpf (0 - 2); Urine Mucus MODERATE (None Seen); Urine Protein, UAD Negative (Negative); Urine Specific Gravity 1.017 (1.001-1.035); Urine Urobilinogen Normal (Negative); Urine WBC 5 /hpf (0 - 5); Urine pH 5.5 (5.0-8.0)
[2023-05-31 15:30] LABS: Urine Color STRAW (Yellow)
[2023-05-31] MEDS ORDERED: levoFLOXacin 750MG 150 ML IV ONE (16:00)
[2023-05-31 16:49] VITALS: BP 116/64; TEMP 36.8
[2023-05-31 17:46] VITALS: BP 146/82; PULSE 89; RESP 17; TEMP 97.8; O2SAT 97
[2023-06-01 05:07] LABS: RPR Non Reactive (Non Reactive)
[2023-06-01 07:07] LABS: Immunoglobulin A 168 mg/dL (87-352); Immunoglobulin G, Serum 658 mg/dL (586-1602); Immunoglobulin M 39 mg/dL (26-217)
[2023-06-01] MEDS ORDERED: ENOXAPARIN SOD 40 MG/0.4 ML SYRINGE SC SCH (10:00)
== END 2023-05-31 18:05 | disposition home health service (06) | DRG 552 ==
LOC: ER 05:18 → TELE 11:27 → TELE-EAST 21:19
PROVIDERS: ADMIT Nurse Practitioner Family; ATTEND Internal Medicine
DX: S22.068A Other fracture of T7-T8 thoracic vertebra, initial encounter for closed fracture (principal); N17.9 Acute kidney failure, unspecified; N39.0 Urinary tract infection, site not specified; R15.9 Full incontinence of feces; E11.65 Type 2 diabetes mellitus with hyperglycemia; I10 Essential (primary) hypertension; E78.5 Hyperlipidemia, unspecified; W18.39XA Other fall on same level, initial encounter; E11.40 Type 2 diabetes mellitus with diabetic neuropathy, unspecified; E04.2 Nontoxic multinodular goiter; G25.81 Restless legs syndrome; G47.00 Insomnia, unspecified; Z79.82 Long term (current) use of aspirin; Z79.899 Other long term (current) drug therapy; Z86.73 Personal history of transient ischemic attack (TIA), and cerebral infarction without residual deficits; Z87.442 Personal history of urinary calculi; Z82.49 Family history of ischemic heart disease and other diseases of the circulatory system; Z83.3 Family history of diabetes mellitus; Z88.8 Allergy status to other drugs, medicaments and biological substances; Y93.89 Activity, other specified; Y92.89 Other specified places as the place of occurrence of the external cause; Y99.8 Other external cause status
CPT/HCPCS: 36415; 70450; 70551; 72125; 72128; 72131; 72146; 72148; 80053; 80061; 81001; 82043; 82607; 82728; 82746; 82784; 82962; 83036; 83540; 83550; 83735; 84100; 84439; 84443; 84484; 85025; 85610; 85730; 86334; 86335; 86592; 93306; 93886; 97110; 97116; 97163; G0378; J1815; J1956

== ENCOUNTER → 2023-06-16 | Outpatient (CLI) | payer OTHER ==
[~2023-06-16] MED LIST changes: -EMPA1TAB3 PO; +METF-869 PO
== END | disposition home or self-care (01) ==
LOC: LAB 12:20
PROVIDERS: ATTEND Internal Medicine
DX: N39.0 Urinary tract infection, site not specified (principal)
CPT/HCPCS: 87086

== ENCOUNTER → 2023-06-23 | Outpatient (CLI) | payer OTHER ==
[2023-06-23 10:47] LABS: Creatinine, Urine 91.74 mg/dL (30.0-125.0)
[2023-06-23 11:20] LABS: Triglycerides 185 mg/dL (< 150)
[2023-06-23 11:21] LABS: LDL Cholesterol 30 mg/dL (< 100)
[2023-06-23 11:22] LABS: Cholesterol 98 mg/dL (< 200); HDL Cholesterol 39 mg/dL (40-59)
== END | disposition home or self-care (01) ==
LOC: LAB 09:58
PROVIDERS: ATTEND Internal Medicine
DX: E11.9 Type 2 diabetes mellitus without complications (principal); E78.5 Hyperlipidemia, unspecified
CPT/HCPCS: 36415; 80061; 82043; 82570; 83036

== ENCOUNTER → 2023-08-09 | Outpatient (CLI) | payer OTHER | END | disposition home or self-care (01) | LOC: LAB 15:34 | PROVIDERS: ATTEND Internal Medicine | DX: Z12.11 Encounter for screening for malignant neoplasm of colon (principal); E11.9 Type 2 diabetes mellitus without complications | CPT/HCPCS: 82270 ==

== ENCOUNTER → 2023-11-24 | Outpatient (CLI) | payer OTHER ==
[~2023-11-24] MED LIST changes: -ATO40T PO; +ATOR-507 PO; +LOSA-533 PO; -LOSA25TA15 PO
[2023-11-24 10:27] LABS: Anion Gap 6 (5-15); Carbon Dioxide 33 mmol/L (20-30); Chloride 105 mmol/L (98-107); Sodium 144 mmol/L (136-145)
[2023-11-24 10:28] LABS: Calcium 10.7 mg/dL (8.5-10.1)
[2023-11-24 10:33] LABS: BUN/Creatinine Ratio 22.8 (10.0-20.0); Blood Urea Nitrogen 23 mg/dL (9-23); Glucose 65 mg/dL (74-106)
[2023-11-24 10:46] LABS: Creatinine, Urine 162.44 mg/dL (30.0-125.0)
== END | disposition home or self-care (01) ==
LOC: LAB 09:39
PROVIDERS: ATTEND Internal Medicine
DX: E11.9 Type 2 diabetes mellitus without complications (principal); E78.5 Hyperlipidemia, unspecified
CPT/HCPCS: 36415; 80048; 82043; 82570; 83036

== ENCOUNTER → 2024-06-02 | Outpatient (CLI) | payer OTHER ==
[2024-06-02 11:52] LABS: Basophils # (auto) 0 10 ^3/uL (0-0.2); Basophils % (auto) 0.6 % (0.0-2.0); Eosinophils # (auto) 0.2 10 ^3/uL (0-0.8); Eosinophils % (auto) 3.6 % (0.0-7.0); Hematocrit 41.2 % (36.0-46.0); Hemoglobin 14.7 g/dL (12.2-16.2); Lymphocytes # (auto) 2.3 10 ^3/uL (0.4-5.4); Lymphocytes % (auto) 40.6 % (10.0-50.0); Mean Corpuscular Hemoglobin 32.9 pg (28.0-32.0); Mean Corpuscular Hgb Conc. 35.6 g/dL (32.0-36.0); Mean Corpuscular Volume 92.3 fL (80.0-100.0); Monocytes # (auto) 0.4 10 ^3/uL (0-1.3); Monocytes % (auto) 7.6 % (0.0-12.0); Neutrophils # (auto) 2.7 10 ^3/uL (1.6-8.6); Neutrophils % (auto) 47.6 % (37.0-80.0); Platelet Count (auto) 231 10^3/uL (140-450); Red Blood Cells 4.46 10^6/uL (4.0-5.20); Red Cell Distribution Width 13.2 % (11.8-14.3); White Blood Cell 5.7 10^3/uL (4.4-10.8)
[2024-06-02 12:06] LABS: Cholesterol 112 mg/dL (< 200); Triglycerides 125 mg/dL (< 150)
[2024-06-02 12:07] LABS: LDL Cholesterol 44 mg/dL (< 100)
[2024-06-02 12:08] LABS: HDL Cholesterol 42 mg/dL (40-59)
[2024-06-02 12:53] LABS: Creatinine, Urine 111.71 mg/dL (30.0-125.0)
== END | disposition home or self-care (01) ==
LOC: LAB 11:04
PROVIDERS: ATTEND Internal Medicine
DX: E11.9 Type 2 diabetes mellitus without complications (principal); E04.1 Nontoxic single thyroid nodule; E78.5 Hyperlipidemia, unspecified
CPT/HCPCS: 36415; 80061; 82043; 82570; 83036; 84443; 85025

== ENCOUNTER → 2024-07-03 | Outpatient (CLI) | payer OTHER ==
[2024-07-03 11:56] LABS: Chloride 102 mmol/L (98-107); Sodium 139 mmol/L (136-145)
[2024-07-03 11:57] LABS: Anion Gap 7 (5-15); Calcium 10.3 mg/dL (8.7-10.4); Carbon Dioxide 30 mmol/L (20-31)
[2024-07-03 12:02] LABS: BUN/Creatinine Ratio 19.8 (10.0-20.0)
[2024-07-03 12:09] LABS: Blood Urea Nitrogen 24 mg/dL (9-23); Glucose 165 mg/dL (74-106)
== END | disposition home or self-care (01) ==
LOC: LAB 11:24
PROVIDERS: ATTEND Internal Medicine
DX: E11.9 Type 2 diabetes mellitus without complications (principal)
CPT/HCPCS: 36415; 80048

== ENCOUNTER → 2024-09-25 | Outpatient (CLI) | payer OTHER ==
--- NOTE | 2024-09-25 13:41 | DVH ---
EXAM: NM BONE WHOLE BODY History: HYPERCALCEMIA Comparison Study: None available TECHNIQUE: At approximately 2 hours following intravenous administration 25.7 mCi of Tc-99m MDP, ante rior and posterior whole body planar images were obtained. FINDINGS: No suspicious foci of tracer activity to suggest osteoblastic metastases. Whole-body images demonstrate unremarkable radiotracer uptake along the axial and appendicular skelet on. Physiologic radiotracer distribution in bilateral kidneys and urinary bladder. Degenerative changes in the sternum, shoulders, upper thoracic spine, and sacroiliac joints. IMPRESSION: 1. No scintigraphic evidence of abnormal radiotracer uptake to suggest hypercalcemia.
== END | disposition home or self-care (01) ==
LOC: XYW 07:52
PROVIDERS: ATTEND Internal Medicine
DX: M19.012 Primary osteoarthritis, left shoulder (principal); M19.011 Primary osteoarthritis, right shoulder; M47.814 Spondylosis without myelopathy or radiculopathy, thoracic region; M19.09 Primary osteoarthritis, other specified site; E83.52 Hypercalcemia
CPT/HCPCS: 78306; A9503

== ENCOUNTER → 2024-09-25 | Outpatient (CLI) | payer OTHER ==
[2024-09-25 10:15] LABS: Alanine Aminotransferase 21 U/L (7-40); Albumin 4.8 g/dL (3.2-4.8); Alkaline Phosphatase 76 U/L (46-116); Anion Gap 7 (5-15); Aspartate Aminotransferase 21 U/L (13-40); BUN/Creatinine Ratio 22.3 (10.0-20.0); Bilirubin, Total 1.1 mg/dL (0.2-1.0); Carbon Dioxide 27 mmol/L (20-31); Potassium 4.7 mmol/L (3.5-5.1); Sodium 142 mmol/L (136-145); Total Protein 7.1 g/dL (5.7-8.2)
[2024-09-25 10:37] LABS: Blood Urea Nitrogen 27 mg/dL (9-23); Calcium 10.6 mg/dL (8.7-10.4); Chloride 108 mmol/L (98-107); Glucose 167 mg/dL (74-106)
== END | disposition home or self-care (01) ==
LOC: LAB 08:24
PROVIDERS: ATTEND Internal Medicine
DX: E11.9 Type 2 diabetes mellitus without complications (principal); E83.52 Hypercalcemia
CPT/HCPCS: 36415; 80053; 82306; 83970

== ENCOUNTER → 2024-11-29 | Outpatient (CLI) | payer OTHER ==
[2024-11-29 11:47] LABS: Alanine Aminotransferase 16 U/L (7-40); Albumin 4.6 g/dL (3.2-4.8); Alkaline Phosphatase 96 U/L (46-116); Anion Gap 8 (5-15); Aspartate Aminotransferase 19 U/L (13-40); BUN/Creatinine Ratio 21.8 (10.0-20.0); Carbon Dioxide 31 mmol/L (20-31); Chloride 102 mmol/L (98-107); Potassium 4.8 mmol/L (3.5-5.1); Sodium 141 mmol/L (136-145)
[2024-11-29 11:48] LABS: Blood Urea Nitrogen 24 mg/dL (9-23); Glucose 153 mg/dL (74-106)
== END | disposition home or self-care (01) ==
LOC: LAB 11:10
PROVIDERS: ATTEND Internal Medicine
DX: E11.9 Type 2 diabetes mellitus without complications (principal)
CPT/HCPCS: 36415; 80053; 83036

== ENCOUNTER 2025-03-01 11:16 | Outpatient (CLI) | payer OTHER ==
[2025-03-01 12:21] LABS: Alanine Aminotransferase 39 U/L (7-40); Albumin 4.4 g/dL (3.2-4.8); Alkaline Phosphatase 82 U/L (46-116); Anion Gap 7 (5-15); BUN/Creatinine Ratio 20.7 (10.0-20.0); Calcium 9.8 mg/dL (8.7-10.4); Carbon Dioxide 27 mmol/L (20-31); Chloride 105 mmol/L (98-107); Potassium 4.8 mmol/L (3.5-5.1); Sodium 139 mmol/L (136-145); Total Protein 6.5 g/dL (5.7-8.2)
[2025-03-01 12:22] LABS: Bilirubin, Total 0.9 mg/dL (0.2-1.0)
[2025-03-01 12:23] LABS: Blood Urea Nitrogen 25 mg/dL (9-23); Glucose 170 mg/dL (74-106)
[2025-03-01 12:39] LABS: Hematocrit 42.8 % (36.0-46.0); Hemoglobin 15.0 g/dL (12.2-16.2); Mean Corpuscular Hemoglobin 30.6 pg (28.0-32.0); Mean Corpuscular Volume 87.4 fL (80.0-100.0); Nucleated Red Blood Cells % 0.1 %
== END 2025-03-01 17:00 | disposition home or self-care (01) ==
LOC: LAB 11:16
PROVIDERS: ATTEND Internal Medicine
DX: E11.22 Type 2 diabetes mellitus with diabetic chronic kidney disease (principal); N18.31 Chronic kidney disease, stage 3a; M25.552 Pain in left hip
CPT/HCPCS: 36415; 80053; 83036; 85025; 85652

== ENCOUNTER 2025-05-30 11:17 | Outpatient (CLI) | payer OTHER ==
[2025-05-30 13:03] LABS: Anion Gap 9 (5-15); Carbon Dioxide 31 mmol/L (20-31); Chloride 105 mmol/L (98-107); Potassium 4.4 mmol/L (3.5-5.1); Sodium 145 mmol/L (136-145)
[2025-05-30 13:04] LABS: Calcium 9.4 mg/dL (8.7-10.4)
[2025-05-30 13:09] LABS: BUN/Creatinine Ratio 16.7 (10.0-20.0); Blood Urea Nitrogen 17 mg/dL (9-23); Triglycerides 74 mg/dL (< 150)
[2025-05-30 13:11] LABS: Cholesterol 105 mg/dL (< 200); Glucose 73 mg/dL (74-106); HDL Cholesterol 49 mg/dL (40-59)
== END 2025-05-30 17:00 | disposition home or self-care (01) ==
LOC: LAB 11:17
PROVIDERS: ATTEND Internal Medicine
DX: E11.22 Type 2 diabetes mellitus with diabetic chronic kidney disease (principal); N18.31 Chronic kidney disease, stage 3a; E04.1 Nontoxic single thyroid nodule
CPT/HCPCS: 36415; 80048; 80061; 83036